=== PATIENT | male | born 1990 | race Two or more races ===

== ENCOUNTER 2016-11-21 16:33 | Emergency (ER) | payer SELFPAY ==
[~2016-11-21] VITALS: Ht 175.3 cm; Wt 90.7 kg
[2016-11-21 16:22] VITALS: BP 120/69
[2016-11-21] MEDS ORDERED: LORazepam Inj 2mg/ml 1ml IM ONE (16:45)
--- NOTE | 2016-11-21 17:50 | Emergency Room Report ---
History of Present Illness General Chief Complaint: Alcohol Intoxication Source: EMS Present Illness HPI The patient is a 26-year-old male brought in by EMS and accompanied by police officers for alcohol intoxication. EMS states that the patient drank a full bottle of jenn at home and then began to become aggressive with his family members who called 911. The patient provides limited information but does admit to drinking the alcohol. He denies any complaints. He denies any drug use. He denies any other symptoms Allergies: Coded Allergies: No Known Allergies (Unverified , 11/21/16) Patient History Past Medical History: see triage record Pertinent Family History: none Reviewed Nursing Documentation: PMH: Agreed, PSxH: Agreed Nursing Documentation-PMH Past Medical History: No Stated History Review of Systems All Other Systems: negative except mentioned in HPI Physical Exam Vital Signs Date Time Temp Pulse Resp B/P (MAP) Pulse Ox O2 Delivery O2 Flow Rate FiO2 11/21/16 16:22 98.9 88 18 120/69 99 Room Air Sp02 EP Interpretation: reviewed, normal General Appearance: no apparent distress, alert, GCS 15, non-toxic Head: normocephalic, atraumatic Eyes: bilateral eye normal inspection, bilateral eye PERRL ENT: hearing grossly normal, other - slurred speech Neck: full range of motion, supple/symm/no masses Respiratory: chest non-tender, lungs clear, normal breath sounds, speaking full sentences Cardiovascular #1: regular rate, rhythm, no edema Gastrointestinal: normal bowel sounds, non tender, soft, non-distended, no guarding, no rebound Musculoskeletal: back normal, normal range of motion, non-tender Neurologic: alert, responsive, sensory intact Psychiatric: depressed affect, other - aggressive. he wakes up and punches bed Skin: normal color, no rash, warm/dry, well hydrated Medical Decision Making PA Attestation Dr. Altamirano is my supervising physician. Patient management was discussed with my supervising physician Diagnostic Impression: Primary Impression: Acute alcoholic intoxication Qualified Codes: F10.929 - Alcohol use, unspecified with intoxication, unspecified ER Course The patient is a 26-year-old male brought in by EMS for alcohol intoxication DDx considered but not limited to: acute alcohol intoxication, hepatic encephalopathy, drug overdose, hypoglycemia, psychosis Physical exam: Vitals are within normal limits. Pt is aggressive and punches his bed Head is normocephalic atraumatic. Pupils are equally round and reactive to light The patient is arousable by touch or name. Lungs are clear to auscultation bilaterally. No abnormal tenderness. Abdomen is soft. Otherwise exam is unremarkable Blood alcohol critically elevated to 420. UDS + amphetamines. The patient is given time to rest in the emergency department. Upon reevaluation, patient is to drinking jenn. Note: the patient's father has arrived and states he is able to take the patient home and care for him. The patient is alert and oriented. He is ambulating without difficulty The patient be discharged home and given ER precautions. Patient was given advice on alcohol addiction Laboratory Tests Test 11/21/16 17:39 11/21/16 18:00 White Blood Count 7.1 K/UL (4.8-10.8) Red Blood Count 4.91 M/UL (4.70-6.10) Hemoglobin 16.5 G/DL (14.2-18.0) Hematocrit 47.3 % (42.0-52.0) Mean Corpuscular Volume 96 FL (80-99) Mean Corpuscular Hemoglobin 33.6 PG (27.0-31.0) H Mean Corpuscular Hemoglobin Concent 34.9 G/DL (32.0-36.0) Red Cell Distribution Width 10.8 % (11.6-14.8) L Platelet Count 270 K/UL (150-450) Mean Platelet Volume 7.6 FL (6.5-10.1) Neutrophils (%) (Auto) 46.2 % (45.0-75.0) Lymphocytes (%) (Auto) 35.1 % (20.0-45.0) Monocytes (%) (Auto) 9.1 % (1.0-10.0) Eosinophils (%) (Auto) 6.9 % (0.0-3.0) H Basophils (%) (Auto) 2.7 % (0.0-2.0) H Sodium Level 147 mEQ/L (135-145) H Potassium Level 3.8 mEQ/L (3.4-4.9) Chloride Level 108 mEQ/L (98-107) H Carbon Dioxide Level 25 mEQ/L (20-30) Anion Gap 14 (5-15) Blood Urea Nitrogen 7 mg/dL (7-23) Creatinine 0.8 mg/dL (0.7-1.2) Estimate Glomerular Filtration Rate > 60 mL/min (>60) Glucose Level 109 mg/dL (74-106) H Calcium Level 8.5 mg/dL (8.6-10.2) L Total Bilirubin 0.7 mg/dL (0.0-1.2) Aspartate Amino Transferase (AST) 54 U/L (5-40) H Alanine Aminotransferase (ALT) 59 U/L (3-41) H Alkaline Phosphatase 93 U/L (40-129) Total Protein 6.7 g/dL (6.6-8.7) Albumin 4.2 g/dL (3.5-5.2) Globulin 2.5 g/dL Albumin/Globulin Ratio 1.6 (1.0-2.7) Lipase 34 U/L (< 60) Serum Alcohol 420 mg/dL Urine Opiates Screen Negative (NEGATIVE) Urine Barbiturates Screen Negative (NEGATIVE) Phencyclidine (PCP) Screen Negative (NEGATIVE) Urine Amphetamines Screen Positive (NEGATIVE) H Urine Benzodiazepines Screen Negative (NEGATIVE) Urine Cocaine Screen Negative (NEGATIVE) Urine Marijuana (THC) Screen Negative (NEGATIVE) Lab Results Impression CBC unremarkable CMP shows mildly elevated AST/ALT UDS + amphetamines Blood alcohol significantly elevated to 420 CT/MRI/US Diagnostic Results CT/MRI/US Diagnostic Results : Imaging Test Ordered: CT head Impression No acute findings Last Vital Signs Date Time Temp Pulse Resp B/P (MAP) Pulse Ox O2 Delivery O2 Flow Rate FiO2 11/21/16 16:22 88 18 120/69 99 Room Air 11/21/16 16:22 98.9 Status: improved Disposition: HOME, SELF-CARE Condition: Improved JONATHON GILMORE Nov 21, 2016 17:50
[2016-11-21 18:05] LABS: BASOPHILS % (AUTO) 2.7 % (0.0-2.0); EOSINOPHILS % (AUTO) 6.9 % (0.0-3.0); LYMPHOCYTES % (AUTO) 35.1 % (20.0-45.0); MEAN CORPUSCULAR HEMOGLOBIN 33.6 PG (27.0-31.0); MEAN CORPUSCULAR HGB CONC 34.9 G/DL (32.0-36.0); MEAN CORPUSCULAR VOLUME 96 FL (80-99); MEAN PLATELET VOLUME 7.6 FL (6.5-10.1); MONOCYTES % (AUTO) 9.1 % (1.0-10.0); NEUTROPHILS % (AUTO) 46.2 % (45.0-75.0); PLATELET COUNT 270 K/UL (150-450); RED BLOOD COUNT 4.91 M/UL (4.70-6.10); RED CELL DISTRIBUTION WIDTH 10.8 % (11.6-14.8); WHITE BLOOD COUNT 7.1 K/UL (4.8-10.8)
[2016-11-21 18:15] LABS: ALANINE AMINOTRANSFERASE 59 U/L (3-41); ALBUMIN/GLOBULIN RATIO 1.6 (1.0-2.7); ALCOHOL 420 mg/dL; ANION GAP 14 (5-15); ASPARTATE AMINO TRANSFERASE 54 U/L (5-40); CALCIUM 8.5 mg/dL (8.6-10.2); CARBON DIOXIDE 25 mEQ/L (20-30); CHLORIDE 108 mEQ/L (98-107); CREATININE 0.8 mg/dL (0.7-1.2); GLOMERULAR FILTRATION RATE > 60 mL/min (>60); HEMOLYSIS 5; LIPASE 34 U/L (< 60); POTASSIUM 3.8 mEQ/L (3.4-4.9); SODIUM 147 mEQ/L (135-145); TOTAL PROTEIN 6.7 g/dL (6.6-8.7)
[2016-11-21 18:30] VITALS: BP 122/77
[2016-11-21] MEDS ORDERED: ZOFRAN4 M3 ORAL (21:02)
[2016-11-21 22:25] VITALS: BP 129/79
[2016-11-21 22:30] VITALS: BP 129/79
--- NOTE | 2016-11-22 08:40 | Diagnostic Imaging Report ---
Indication: AMS Technique: Continuous helical CT scanning of the head was performed without intravenous contrast material. Axial and coronal 5 mm sections were generated. Radiation dose was minimized using automated exposure control Dose: Total Dose Length Product - DLP thousand [address] Dose Index - CTDIvol(s) 70.38 mGy. Comparison: None Findings: The ventricular system is normal in size and configuration. There is no shift of midline structures. No abnormal extra-axial fluid collections are noted. There is no evidence of intracerebral bleeding. No other abnormal high or low density areas are noted within the brain. There is minimal mucosal thickening of the left mastoid sinus as well as minimal left ethmoid mucosal thickening. The orbits are unremarkable. Mastoids are clear. The calvarium is intact Impression: Normal CT scan of the head without contrast material. Incidental finding of sinus disease The CT scanner at [facility] is accredited by the [employer] and the scans are performed using protocols designed to limit radiation exposure to as low as reasonably achievable to attain images of sufficient resolution adequate for diagnostic evaluation.
== END 2016-11-21 22:30 | disposition home or self-care (01) ==
LOC: EDBD 16:33 → EMR 17:00
DX: F10.129 Alcohol abuse with intoxication, unspecified (principal)
CPT/HCPCS: 36415; 70450; 80053; 80300; 83690; 85025; 96360; 96372; 99284; G0480; 80329